=== PATIENT | male | born 1990 | race Caucasian/White ===

== ENCOUNTER 2017-07-28 16:00 | Emergency (ER) | payer BC, OTHER ==
[2017-07-28 16:37] VITALS: BP 143/81
--- NOTE | 2017-07-28 16:43 | UC ---
Throat Pain/Nasal Mendez HPI - HPI Summary HPI Summary: pt is c/o cough with chest congestion and scratchy throat. admits to sob and some wheezing. no cp or fever. no hx asthma. - History of Current Complaint Hx Obtained From: Patient Onset/Duration: Gradual Onset Cough: Productive Associated Signs & Symptoms: Positive: Wheezing - Epiglottits Risk Factors Epiglottis Risk Factors: Negative <Bindu Lewis - Last Filed: 07/28/17 16:46> <Angelica Nguyen - Last Filed: 07/28/17 18:17> - History of Current Complaint Stated Complaint: COUGH,ST Time Seen by Provider: 07/28/17 16:29 - Allergies/Home Medications Allergies/Adverse Reactions: Allergies Allergy/AdvReac Type Severity Reaction Status Date / Time No Known Allergies Allergy Verified 07/28/17 16:28 Home Medications: Home Medications Expectorant/Decongestant 1 tab PO Q4H PRN 07/28/17 [History] Ibuprofen TAB* [Advil TAB*] 400 mg PO Q6H PRN 07/28/17 [History Confirmed ] PMH/Surg Hx/FS Hx/Imm Hx Previously Healthy: Yes - Surgical History Surgical History: None - Immunization History Vaccination Up to Date: Yes <Bindu Lewis - Last Filed: 07/28/17 16:46> Review of Systems Constitutional: Negative Skin: Negative Eyes: Negative ENT: Sore Throat Respiratory: Shortness Of Breath, Cough Cardiovascular: Negative Gastrointestinal: Negative Genitourinary: Negative Motor: Negative Neurovascular: Negative Musculoskeletal: Negative Neurological: Negative Psychological: Negative Is Patient Immunocompromised?: No All Other Systems Reviewed And Are Negative: Yes <Bindu Lewis - Last Filed: 07/28/17 16:46> Physical Exam Triage Information Reviewed: Yes Appearance: Well-Appearing Vital Signs Reviewed: Yes Eye Exam: Normal ENT: Positive: Pharynx normal, TMs normal. Negative: Nasal congestion, Nasal drainage Neck: Positive: Supple, Nontender, No Lymphadenopathy Respiratory: Positive: Decreased breath sounds, Other: - cough is congested Cardiovascular: Positive: RRR, No Murmur Abdomen Description: Positive: Nontender, No Organomegaly, Soft Bowel Sounds: Positive: Present Neurological: Positive: Alert Psychological: Positive: Age Appropriate Behavior Skin Exam: Normal <Bindu Lewis - Last Filed: 07/28/17 16:46> Vital Signs: Initial Vital Signs Temp 98.9 F 07/28/17 16:31 Pulse 90 07/28/17 16:31 Resp 18 07/28/17 16:31 BP 143/81 07/28/17 16:31 Pulse Ox 99 07/28/17 16:31 <Angelica Nguyen - Last Filed: 07/28/17 18:17> Throat Pain/Nasal Course/Dx - Course Course Of Treatment: pt ill x 8 days with worsening cough, sob and wheezing. no hx RAD. will tx albuterol, prednisone and doxycycline. pt has been seen by [facility] in past thus will refer there again - Differential Dx/Diagnosis Provider Diagnoses: Cough. Bronchospasm. <Bindu Lewis - Last Filed: 07/28/17 16:46> Discharge - Sign-Out/Discharge Documenting (check all that apply): Discharge - Billing Disposition and Condition Condition: STABLE Disposition: HOME <Bindu Lewis - Last Filed: 07/28/17 16:46> - Billing Disposition and Condition Condition: STABLE Disposition: HOME <Angelica Nguyen - Last Filed: 07/28/17 18:17> - Discharge Plan Condition: Stable Disposition: HOME Prescriptions: Albuterol HFA INHALER* [Ventolin HFA Inhaler*] 2 puff INH Q6H #1 mdi DOXYcycline CAP(*) [DOXYcycline 100MG CAP(*)] 100 mg PO BID #20 cap predniSONE TAB* [Deltasone TAB*] 40 mg PO DAILY 3 Days #6 tab Patient Education Materials: Bronchospasm (ED), Acute Cough (ED) Referrals: CRICKET Batista [Medical Doctor] - 7 Days Attestation Statement User Type: Provider - I was available for consult. This patient was seen by the RAMANA. The patient was not presented to, seen by, or examined by me. -Luis <Angelica Nguyen - Last Filed: 07/28/17 18:17>
== END 2017-07-28 16:58 | disposition home or self-care (01) ==
LOC: UCCORT 16:00
DX: R05 Cough (principal); J98.01 Acute bronchospasm
CPT/HCPCS: 99202; G0463